=== PATIENT | female | born 1970 | race Two or more races ===

== ENCOUNTER 2017-02-02 15:54 | Emergency (ER) | payer MEDICAID, OTHER, SELFPAY ==
[~2017-02-02] VITALS: Ht 162.6 cm; Wt 59.6 kg
[2017-02-02] MEDS ORDERED: MELO-184 PO (16:25)
[2017-02-02] MEDS ORDERED: INSU100V8 SQ (16:25)
[2017-02-02] MEDS ORDERED: LAMO100T63 PO (16:25)
[2017-02-02] MEDS ORDERED: INSU100C5 SQ-INSULIN (16:25)
[2017-02-02] MEDS ORDERED: LISI5TAB7 PO (16:25)
[2017-02-02] MEDS ORDERED: ONDANSETRON 2MG/ML, 2ML ONE ×2 (16:29→19:12)
[2017-02-02] MEDS ORDERED: SODIUM CHLORIDE FLUSH 10ML SYR IVF ONE (16:30)
[2017-02-02] MEDS ORDERED: SODIUM CHLORIDE 0.9% 1,000ML IVBOLUS ONE (16:30)
[2017-02-02] MEDS ORDERED: ONDANSETRON 2MG/ML, 2ML IVPush ONE ×2 (16:30→20:00)
[2017-02-02 16:34] LABS: ASPARTATE AMINO TRANSFERASE 28 U/L (15-37); BLOOD UREA NITROGEN 17 mg/dL (7-18)
[2017-02-02] MEDS ORDERED: INSULIN REGULAR 100 UNITS/ML, 3ML VIAL SQ-INSULIN ONE (18:00)
[2017-02-02 20:27] VITALS: BP 105/56
== END 2017-02-02 20:32 | disposition home or self-care (01) ==
LOC: ED 20:26
DX: E11.65 Type 2 diabetes mellitus with hyperglycemia (principal); I10 Essential (primary) hypertension; F17.210 Nicotine dependence, cigarettes, uncomplicated; Z79.4 Long term (current) use of insulin
CPT/HCPCS: 36415; 80053; 81003; 82010; 82800; 82962; 83735; 85025; 96361; 96372; 96374; 96376; 99285; J2405; J7030